=== PATIENT | male | born 1985 | race Caucasian/White ===

== ENCOUNTER 2019-01-13 13:43 | Emergency (ER) | payer OTHER ==
[2019-01-13] MEDS ORDERED: Lidocaine 1% MPF ** 5 ML VIAL INJ ONE (15:02)
[2019-01-13] MEDS ORDERED: Ibuprofen TAB* 800 MG PO ONE (15:02)
[2019-01-13 16:52] VITALS: BP 126/76
--- NOTE | 2019-01-13 22:24 | PN ---
Progress Note - Progress Note Date of Service: 01/13/19 Note: Lab called with wound culture results on 01/13. Wound culture positive for staph , negative for MRSA. Patient was already placed on Keflex and Bactrim. No change in treatment needed.
--- NOTE | 2019-01-14 07:12 | ED ---
Upper Extremity Pain - HPI Summary HPI Summary: Patient is a 33-year-old male who presents to emergency department for redness to his right hand. Patient states that a week ago he was moving a table when his right hand struck against a wall and a wood splinter punctured hand. Patient states he cleaned the wound but progressively noticed increased pain and redness to hand. This area makes symptoms worse. Nothing makes symptoms better. Denies past medical history. - History of Current Complaint Chief Complaint: EDRashSkinAbscess Stated Complaint: RT MIDDLE FINGER INF PER PT Time Seen by Provider: 01/13/19 14:42 Hx Obtained From: Patient - Allergies/Home Medications Allergies/Adverse Reactions: Allergies Allergy/AdvReac Type Severity Reaction Status Date / Time No Known Allergies Allergy Verified 01/13/19 13:49 Home Medications: Home Medications Ibuprofen 600 mg PO Q6HR PRN 01/13/19 [History Confirmed 01/13/19] PMH/Surg Hx/FS Hx/Imm Hx Previously Healthy: Yes Infectious Disease History: No Infectious Disease History: Denies: Traveled Outside the [place] in Last 30 Days - Family History Known Family History: Positive: Non-Contributory - Social History Occupation: Employed Full-time Lives: Alone Alcohol Use: Rare Substance Use Type: Reports: None Smoking Status (MU): Former Smoker Review of Systems Constitutional: Negative Negative: Fever, Chills Positive: Other - Pain, redness, and swelling to right hand. Positive: Other - wound right hand All Other Systems Reviewed And Are Negative: Yes Physical Exam Triage Information Reviewed: Yes Vital Signs On Initial Exam: Initial Vitals Temp Pulse Resp BP Pulse Ox 99.3 F 108 20 167/83 97 01/13/19 13:47 01/13/19 13:47 01/13/19 13:47 01/13/19 13:47 01/13/19 13:47 Vital Signs Reviewed: Yes Appearance: Positive: Well-Appearing - Pt. sitting on chair in NAD. Pleasant. Skin: Positive: Warm, Dry Head/Face: Positive: Normal Head/Face Inspection Eyes: Positive: Normal, EOMI Neck: Positive: Supple Musculoskeletal: Positive: Other - Noted over MCP joint of right hand there is a small wound with mild fluctuance and erythema. Do not extend to digits. Full ROM of digits with flexion and extension. Neurological: Positive: Normal, CN Intact II-III Psychiatric: Positive: Affect/Mood Appropriate Procedures - Sedation Patient Received Moderate/Deep Sedation with Procedure: No - Incision and Drainage Right Anterior Hand Site: Right hand Anesthesia: Local, Lidocaine Instrument(s): Scalpel, Other - Scab was unroofed and a small amount of purulent matter expressed. culture obtained Diagnostics - Vital Signs Vital Signs Temp Pulse Resp BP Pulse Ox 01/13/19 16:51 98.6 F 99 18 126/76 99 01/13/19 13:47 99.3 F 108 20 167/83 97 - Laboratory Lab Statement: Any lab studies that have been ordered have been reviewed, and results considered in the medical decision making process. Course/Dx - Course Course Of Treatment: Patient presenting with wound infection to right hand. Afebrile well appearing. No signs of tenosynovitis at this time. Xray shows soft tissue edema per radiology. A small amount of purulent matter expressed and culture obtained. Will place pt. on keflex and bactrim. [employer] reviewed. A few days of lortab rx. Advised warm compresses 3 x a day. Will have pt. f.u with ortho within 2 days for wound check. Advised to return to ER for increased pain , redness, swelling, difficulty moving fingers or if concerned. Pt. understands and agrees with plan. - Diagnoses Provider Diagnoses: Wound infection Discharge ED - Sign-Out/Discharge Documenting (check all that apply): Patient Departure - Discharge Plan Condition: Good Disposition: HOME Prescriptions: Cephalexin CAP* [Keflex CAP*] 500 mg PO QID #40 cap Hydrocodone/Acetaminophen [Hydrocodone-Acetamin 5-325 mg] 1 each PO Q6H #12 tablet MDD 4 Sulfamethox/Trimethoprim DS* [Bactrim DS 800/160 TAB*] 1 tab PO BID #20 tab Patient Education Materials: Wound Infection (ED), Abscess (ED) Forms: *Work Release Referrals: Ruth Stanford MD [Medical Doctor] - Additional Instructions: Call the orthopedic clinic tomorrow morning to schedule an appointment within 2- 3 days Take antibiotics as directed Apply warm compresses Return to ER for increased pain, redness, swelling, or if concerned - Billing Disposition and Condition Condition: GOOD Disposition: Home - Attestation Statements Provider Attestation: I was available for consultation for this patient. I did not evaluate the patient, or participate in any medical decision making or disposition decisions unless I am specifically named in the chart as having consulted on the patient. If I have consulted on the patient, please see my own ED note on the patient encounter. Ramos Perez MD
--- NOTE | 2019-01-16 06:04 | ED ---
Imaging and Labs Follow Up Follow Up Type: Labs/Cultures Labs/Culture Result: MRSA negative, s aureus positive Patient Communication/Plan: Patinet placed on bactrim and keflex. Both are sensitive to organism. nothing further is required Provider Diagnoses: Wound infection
== END 2019-01-13 16:50 | disposition home or self-care (01) ==
LOC: ED 13:43
DX: S61.431A Puncture wound without foreign body of right hand, initial encounter (principal); L02.511 Cutaneous abscess of right hand; L08.9 Local infection of the skin and subcutaneous tissue, unspecified; B95.61 Methicillin susceptible Staphylococcus aureus infection as the cause of diseases classified elsewhere; W22.8XXA Striking against or struck by other objects, initial encounter; Y92.9 Unspecified place or not applicable; Z87.891 Personal history of nicotine dependence
CPT/HCPCS: 10060; 87070; 87077; 87186; 87205; 87640; 87641; 99282; A9270-GY

== ENCOUNTER 2019-01-17 09:46 | Emergency (ER) | payer OTHER ==
[2019-01-17] MEDS ORDERED: traMADol TAB* 50 MG PO ONE (11:25)
[2019-01-17 12:30] VITALS: BP 137/80
--- NOTE | 2019-01-17 12:43 | ED ---
Skin Complaint - HPI Summary HPI Summary: This patient is a 33-year-old male presenting to the ED with a right middle MCP joint swelling. Patient was seen in the ED 4 days ago for same. Continues to state has a 10/10 pain. Patient states a week ago he was moving a table when his right hand struck against a wall and punctured the hand with a with splinter. He was able to cleanse the wound it does not feel the splinter is in there at this point. X-ray obtained is negative. He was placed on antibiotics , Keflex and Bactrim which have not improved his symptoms. He continues to deny any fevers, sweats, chills. He endorses difficulty with clenching fist. Pain is worse than before. He is no longer in pain medications, however continues to be on his antibiotics. He had a follow up with Dr. Garrido in orthopedics. He has another follow-up tomorrow. - History of Current Complaint Chief Complaint: EDExtremityUpper Time Seen by Provider: 01/17/19 10:02 Stated Complaint: INFECTION IN HAND PER PT Hx Obtained From: Patient Onset/Duration: Started Hours Ago Skin Exposure Onset/Duration: Hours Ago Timing: Constant Onset Severity: Moderate Current Severity: Moderate Pain Intensity: 4 Pain Scale Used: 0-10 Numeric Character: Pain, Redness, Raised, Painful Associated Signs & Symptoms: Negative - Allergy/Home Medications Allergies/Adverse Reactions: Allergies Allergy/AdvReac Type Severity Reaction Status Date / Time chicken derived Allergy Severe Anaphylatic Verified 01/17/19 09:53 Shock Egg Derived Allergy Severe Anaphylatic Verified 01/17/19 09:53 Shock PMH/Surg Hx/FS Hx/Imm Hx Previously Healthy: Yes - Immunization History Hx Pertussis Vaccination: No Immunizations Up to Date: Yes Infectious Disease History: No Infectious Disease History: Denies: Traveled Outside the [place] in Last 30 Days - Family History Known Family History: Positive: Non-Contributory - Social History Occupation: Employed Full-time Lives: With Family Alcohol Use: Rare Hx Substance Use: No - 1 Substance Use Type: Reports: None Hx Tobacco Use: No Smoking Status (MU): Former Smoker Review of Systems Negative: Fever, Chills, Fatigue, Skin Diaphoresis Negative: Palpitations, Chest Pain Negative: Shortness Of Breath, Cough Genitourinary: Negative Positive: no symptoms reported, see HPI Negative: Arthralgia Skin: Negative Positive: Other - slight swelling over the R MCP joint Neurological: Negative All Other Systems Reviewed And Are Negative: Yes Physical Exam Triage Information Reviewed: Yes Vital Signs On Initial Exam: Initial Vitals Temp Pulse Resp BP Pulse Ox 98.6 F 110 20 161/83 99 01/17/19 09:47 01/17/19 09:47 01/17/19 09:47 01/17/19 09:47 01/17/19 09:47 Vital Signs Reviewed: Yes Appearance: Positive: Well-Appearing, Well-Nourished Skin: Positive: Warm, Skin Color Reflects Adequate Perfusion, Other - Right MCP joint swelling without erythema or warmth Head/Face: Positive: Normal Head/Face Inspection Eyes: Positive: EOMI, DIANNE, Conjunctiva Clear Neck: Positive: Supple, No Lymphadenopathy Respiratory/Lung Sounds: Positive: Clear to Auscultation, Breath Sounds Present Cardiovascular: Positive: RRR, Pulses are Symmetrical in both Upper and Lower Extremities Musculoskeletal: Positive: Other - unable to flex and extend Neurological: Positive: Speech Normal Procedures - Sedation Patient Received Moderate/Deep Sedation with Procedure: No Diagnostics - Vital Signs Vital Signs Temp Pulse Resp BP Pulse Ox 01/17/19 12:29 98.7 F 97 16 137/80 98 01/17/19 09:47 98.6 F 110 20 161/83 99 - Laboratory Lab Statement: Any lab studies that have been ordered have been reviewed, and results considered in the medical decision making process. Course/Dx - Course Course Of Treatment: During this course treatment, the patient is evaluated for pain to the right middle MCP joint without erythema, warmth. Slight amount of swelling. Pain with flexion and extension and feels he is unable to make a fist. Has appt with Dr. Garrido tomorrow. States pain is 10/10 and currently out of pain medications. No fever, sweats or chills. No erythema or streaking up the arm. No palmar involvement. Patient is given 2 days of tramadol and will follow up with Dr. Garrido tomorrow. - Diagnoses Provider Diagnoses: Swollen joint, Metacarpophalangeal joint pain Discharge ED - Sign-Out/Discharge Documenting (check all that apply): Patient Departure - Discharge Plan Condition: Stable Disposition: HOME Prescriptions: traMADol TAB* [Ultram*] 50 mg PO Q8H PRN #6 tab MDD 3 PRN Reason: Pain Referrals: No Primary Care Phys,NOPCP [Primary Care Provider] - Kate Garrido MD [Medical Doctor] - Additional Instructions: Please follow up with Dr. Garrido as scheduled tomorrow Continue warm compresses - Billing Disposition and Condition Condition: STABLE Disposition: Home
== END 2019-01-17 12:18 | disposition home or self-care (01) ==
LOC: ED 09:46
DX: M25.541 Pain in joints of right hand (principal); M79.89 Other specified soft tissue disorders; Z91.018 Allergy to other foods; Z87.891 Personal history of nicotine dependence
CPT/HCPCS: 99282; A9270-GY